=== PATIENT | female | born 1995 | race African-American/Black ===

== ENCOUNTER 2024-02-16 02:32 | Emergency (ER) | payer MEDICAID ==
[~2024-02-16] VITALS: Ht 167.6 cm; Wt 70.0 kg
[2024-02-16 02:37] VITALS: O2SAT 100
[2024-02-16] MEDS: MAGNESIUM/ALUMINUM HYDROXIDE/SIMETHICONE 30ML UDC PO ONE (03:25)
[2024-02-16] MEDS: ONDANSETRON HCL 4MG/2ML INJ IV ONE ×2 (03:25→04:56)
[2024-02-16] MEDS: SODIUM CHLORIDE 0.9% 1,000 ML IV ONE (03:31)
[2024-02-16 03:36] LABS: BASOPHILS % 0.6 % (0.0-2.0); EOSINOPHILS % 1.1 % (0.0-5.0); HEMATOCRIT. 44.4 % (36.0-48.0); HEMOGLOBIN. 15.3 g/dL (12.0-16.0); LYMPHOCYTES % 16.5 % (20.0-50.0); MEAN CORPUSCULAR HEMOGLOBIN 29.2 pg (28.0-32.0); MEAN CORPUSCULAR HGB CONC 34.3 g/dL (31.0-37.0); MEAN CORPUSCULAR VOLUME 85.2 fL (81.0-99.0); MEAN PLATELET VOLUME 7.9 fl (7.4-10.4); NEUTROPHILS % 74.8 % (40.0-76.0); PLATELET 354 x1000/uL (130-400); RED BLOOD CELL COUNT 5.22 mill/uL (4.2-5.4); RED CELL DISTRIBUTION WIDTH 13.6 % (11.6-14.6); WHITE BLOOD COUNT 9.1 x1000/uL (4.5-11.0)
[2024-02-16 03:45] LABS: CHLORIDE 103 mEq/L (98-107); POTASSIUM 3.3 mEq/L (3.5-5.1); SODIUM 135 mEq/L (136-145)
[2024-02-16 03:46] LABS: CALCIUM 10.8 mg/dL (8.7-10.4); CARBON DIOXIDE 18 mEq/L (21-32)
[2024-02-16 03:51] LABS: B-HCG QUANTITATIVE > 1000 mIU/mL (<3); CREATININE 0.7 mg/dL (0.6-1.0); GLUCOSE 139 mg/dL (70-105); UREA NITROGEN BLOOD 7 mg/dL (9-23)
[2024-02-16 03:53] LABS: ALANINE AMINOTRANSFERASE 39 IU/L (10-49); ALBUMIN 4.8 g/dL (3.2-4.8); ASPARTATE AMINOTRANSFERASE 42 IU/L (<34); BILIRUBIN TOTAL 0.9 mg/dL (0.1-1.0); PROTEIN TOTAL 8.3 g/dL (6.0-8.3)
[2024-02-16] MEDS: ACETAMINOPHEN 1000MG/100ML 100 ML IV ONE (05:03)
[2024-02-16] MEDS ORDERED: ONDA4TAB50 MT (05:30)
[2024-02-16] MEDS ORDERED: MAG355OR21 MT (05:30)
[2024-02-16 05:40] VITALS: BP 142/93; PULSE 86; RESP 12; TEMP 97.6
[2024-02-16] MEDS ORDERED: REGLAN (08:44)
[2024-02-16] MEDS ORDERED: ZOFRAN (08:44)
[2024-02-16] MEDS ORDERED: MIRALAX (08:44)
== END 2024-02-16 06:08 | disposition home or self-care (01) ==
LOC: ER 02:32
DX: O21.9 Vomiting of pregnancy, unspecified (principal); Z3A.09 9 weeks gestation of pregnancy
CPT/HCPCS: 80053; 84702; 85025; 36415; 76830; 76856; 96361; 96365; 96375; 96376; 99285; J2405; J7030; Z7610 ×3; J0131

== ENCOUNTER 2024-05-01 16:44 | Emergency (ER) | payer MEDICAID ==
[~2024-05-01] VITALS: Ht 165.1 cm; Wt 98.0 kg
[~2024-05-01 16:44] MED LIST: MAG355OR21 MT; MIRALAX; ONDA4TAB50 MT; REGLAN; ZOFRAN
[2024-05-01 17:08] VITALS: TEMP 98.7; O2SAT 98
[2024-05-01 18:42] LABS: BASOPHILS % 0.9 % (0.0-2.0); EOSINOPHILS % 3.8 % (0.0-5.0); HEMATOCRIT. 35.5 % (36.0-48.0); HEMOGLOBIN. 11.7 g/dL (12.0-16.0); LYMPHOCYTES % 23.7 % (20.0-50.0); MEAN CORPUSCULAR HGB CONC 32.9 g/dL (31.0-37.0); MEAN CORPUSCULAR VOLUME 85.1 fL (81.0-99.0); MEAN PLATELET VOLUME 7.9 fl (7.4-10.4); MONOCYTES % 9.9 % (2.0-8.0); NEUTROPHILS % 61.7 % (40.0-76.0); PLATELET 330 x1000/uL (130-400); RED BLOOD CELL COUNT 4.18 mill/uL (4.2-5.4); RED CELL DISTRIBUTION WIDTH 14.3 % (11.6-14.6); WHITE BLOOD COUNT 8.6 x1000/uL (4.5-11.0)
[2024-05-01 18:45] VITALS: BP 122/86; PULSE 77; RESP 17
[2024-05-01 18:49] LABS: CARBON DIOXIDE 21 mEq/L (21-32); CHLORIDE 105 mEq/L (98-107); POTASSIUM 3.3 mEq/L (3.5-5.1); SODIUM 136 mEq/L (136-145)
[2024-05-01 18:50] LABS: CALCIUM 9.5 mg/dL (8.7-10.4)
[2024-05-01 18:51] LABS: HCG SCREEN POSITIVE
[2024-05-01 18:54] LABS: CREATININE 0.5 mg/dL (0.6-1.0)
[2024-05-01 18:55] LABS: GLUCOSE 88 mg/dL (70-105)
[2024-05-01 18:56] LABS: ALANINE AMINOTRANSFERASE < 7 IU/L (10-49); ASPARTATE AMINOTRANSFERASE 11 IU/L (<34)
[2024-05-01 18:57] LABS: BILIRUBIN TOTAL 0.3 mg/dL (0.1-1.0); PROTEIN TOTAL 6.7 g/dL (6.0-8.3); UREA NITROGEN BLOOD < 5 mg/dL (9-23)
[2024-05-01 18:59] LABS: BILIRUBIN DIRECT < 0.1 mg/dL (<=3.0)
[2024-05-01] MEDS: ACETAMINOPHEN 325MG TABLET PO ONE (19:21)
[2024-05-01] MEDS: ONDANSETRON 4MG ODT PO ONE (19:22)
[2024-05-01 19:34] LABS: CLARITY URINE CLEAR (CLEAR); COLOR URINE YELLOW (YELLOW); GLUCOSE URINE NEGATIVE (NEGATIVE); KETONES URINE NEGATIVE (NEGATIVE); LEUKOCYTE ESTERASE URINE NEGATIVE (NEGATIVE); NITRITE URINE NEGATIVE (NEGATIVE); OCCULT BLOOD URINE NEGATIVE (NEGATIVE); PH URINE 7.5 (4.5-8.0); PROTEIN URINE NEGATIVE (NEGATIVE); SPECIFIC GRAVITY URINE 1.006 (1.005-1.030); UROBILINOGEN URINE 0.2 E.U./dL (0.2-1.0)
== END 2024-05-01 22:00 | disposition home or self-care (01) ==
LOC: ER 16:44
DX: O26.892 Other specified pregnancy related conditions, second trimester (principal); I10 Essential (primary) hypertension; E03.9 Hypothyroidism, unspecified; Z90.49 Acquired absence of other specified parts of digestive tract; Z88.0 Allergy status to penicillin; Z3A.19 19 weeks gestation of pregnancy
CPT/HCPCS: 99284; 76805; 80076; 80048; 81003; 84703; 83690; 85025; 36415; 76810; Q0162